=== PATIENT | male | born 1975 | race Caucasian/White ===

== ENCOUNTER 2022-12-22 22:59 | Inpatient (IN) | payer MEDICAID, SELFPAY ==
[2022-12-22 23:03] VITALS: BP 124/84; PULSE 85; RESP 20; TEMP 36.7; O2SAT 90
[2022-12-22 23:11] VITALS: BMI 26.9
[2022-12-22] MEDS: ibuprofen 600 mg Tablet PO (23:43)
[2022-12-22] MEDS: quetiapine XR (24HR) 300 mg Tablet PO (23:44)
[2022-12-23 06:00] VITALS: BP 105/70; PULSE 75; RESP 16; O2SAT 98
[2022-12-23] MEDS: CLONazepam 0.5 mg Tablet PO ×3 (08:45→20:38)
[2022-12-23] MEDS: levothyroxine 25 mcg Tablet PO (08:45)
[2022-12-23] MEDS: gabapentin 300 mg Capsule PO (08:45)
[2022-12-23] MEDS: buPROPion XL (24 HR) 150 mg Tablet PO (08:46)
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
[2022-12-23] MEDS: tizanidine 4 mg Tablet 2 MG PO ×2 (12:21→20:37)
[2022-12-23 13:59] VITALS: BP 100/62; PULSE 109; RESP 17; TEMP 36.8; O2SAT 96
[2022-12-23] MEDS: gabapentin 100 mg Capsule 400 MG PO ×2 (15:08→20:38)
[2022-12-23] MEDS: quetiapine XR (24HR) 300 mg Tablet PO (19:13)
[2022-12-23 21:18] VITALS: BP 110/77; PULSE 103; RESP 18; O2SAT 95
[2022-12-24 06:00] VITALS: BP 138/88; PULSE 82; RESP 17; TEMP 36.6; O2SAT 99
[2022-12-24] MEDS: gabapentin 100 mg Capsule 400 MG PO (08:41)
[2022-12-24] MEDS: CLONazepam 0.5 mg Tablet PO ×3 (08:42→20:39)
[2022-12-24] MEDS: buPROPion XL (24 HR) 150 mg Tablet PO (08:42)
[2022-12-24] MEDS: levothyroxine 25 mcg Tablet PO (08:42)
[2022-12-24] MEDS: tizanidine 4 mg Tablet 2 MG PO ×2 (08:42→15:33)
[2022-12-24 14:00] VITALS: BP 129/95; PULSE 106; RESP 17; TEMP 36.9; O2SAT 96
[2022-12-24] MEDS: gabapentin 300 mg Capsule 600 MG PO ×2 (14:37→20:39)
[2022-12-24] MEDS: ibuprofen 600 mg Tablet PO (15:32)
[2022-12-24] MEDS: quetiapine XR (24HR) 300 mg Tablet PO (18:43)
[2022-12-24] MEDS: OLANZapine 5 mg ODT PO (20:39)
[2022-12-24] MEDS: trazodone 50 mg Tablet PO (20:39)
[2022-12-24 21:35] VITALS: BP 126/84; PULSE 95; RESP 20; TEMP 36.6; O2SAT 98
--- NOTE | 2022-12-24 21:47 | P.NPUPN_ITS ---
Subjective NPU Subjective: 47 y.o. white male admitted with suicidal ideation, depressed mood with hx of psychosis and dysthymia in the context of methampetamine abuse. patient reports no psychotic symptoms at this time. He reports feeling better today. He was compliant and appeared in no acute distress on the milieu. He reports that he was feeling better on his medication with improvement in sleep with increase in seroquel. Patient reported plan for outpatient treatment. He reports good energy and improved motivation. Mental Status Exam MSE Comments: Patient is casually dressed white male who appeared slightly overweight and appeared in no acute distress. His gait was adequate. His hygiene was fair. There was no evidence of any abnormal involuntary motor movements tics or tremors appreciated. He denied any homicidal or suicidal ideation. He did not appear to be responding to internal stimuli. There was no clear evidence of delusional thinking. His mood was described as okay. His affect was brighter. His attention span was fair.. His thought process was linear and logical. His insight was improving. His judgment is fair. His impulse control appeared fair. His recent and remote memory appeared grossly intact. He was alert and oriented to person place and time. Vitals/I&O/Wt Last Vital Signs Temp 97.8 F 12/24/22 21:35 Pulse 95 12/24/22 21:35 Resp 20 H 12/24/22 21:35 BP 126/84 12/24/22 21:35 Pulse Ox 98 12/24/22 21:35 O2 Del Method Room Air 12/24/22 21:35 Weight last 48 hrs Weight 78.018 kg A&P Assessment and plan (1) Unspecified psychosis: (2) Dysthymia: (3) Anxiety disorder, unspecified: Plan 47-year-old white male positive for methamphetamine admitted after endorsing homicidal ideation towards his brother and making suicidal statements transferred from [facility] in [facility]. Patient would likely benefit from a short hospital stay with restarting of his current medications and evaluating for lethality. #1. Encourage individual group and milieu therapy. #2. Recommend sober living treatment at the highest level of care to which the patient is willing to commit. #3. Continue every 15 minute checks for safety. #4. Continue medications as prescribed with likely discharge tommorow. Involuntary Hold Information 96 Hour Hold: 96 Hour Involuntary Admission: Yes Attestations NPU Medical Necessity Statement*: Inpatient hospitalization is medically necessary and deemed to be the clinically appropriate intervention at this time.? We will monitor/initiate medications and make changes as indicated.? His likely length of stay is 1-2 days. Coding Level of Care Code Acute Code for Chg Fwd Diagnoses Unspecified psychosis F29 Dysthymia F34.1 Anxiety disorder, unspecified F41.9
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
[2022-12-25 06:00] VITALS: RESP 17
[2022-12-25] MEDS: levothyroxine 25 mcg Tablet PO (08:16)
[2022-12-25] MEDS: buPROPion XL (24 HR) 150 mg Tablet PO (08:16)
[2022-12-25] MEDS: CLONazepam 0.5 mg Tablet PO ×3 (08:16→20:58)
[2022-12-25] MEDS: gabapentin 300 mg Capsule 600 MG PO ×3 (08:16→20:58)
[2022-12-25] MEDS: ibuprofen 600 mg Tablet PO ×2 (10:21→15:30)
[2022-12-25] MEDS: tizanidine 4 mg Tablet 2 MG PO ×2 (10:23→21:00)
--- NOTE | 2022-12-25 12:10 | W.PM.NPUPNS ---
Subjective NPU Subjective: Patient presented today reporting that he still struggling with some challenges that he has. He reports that he is trying to get connected with treatment with the social work team for that outcome. He was very concerned about the ability to get his medications. He Reports a Significant Conflict with His Significant Other he does not feel he will be able to get his medications. We discussed the possibility that we might be able to get some medications in the meds to beds program. Because of the conflict with his girlfriend he is not sure that he has a place to go and is working with the social work team on a plan for discharge. Mental Status Exam MSE Comments: This is an overweight white male in hospital scrubs with adequate grooming and eye contact. No abnormal movements except for mild psychomotor retardation. Cooperative with exam in no acute distress. Speech was slightly decreased rate and volume. Mood described as better, affect congruent. Thought process organized. Thought content: Patient denied suicidal or homicidal ideation, there were no delusions reported noted, he denied any auditory or visual hallucinations. Attention and concentration were intact and memory appeared reliable but none were formally tested. He is alert and oriented x 3. Insight and judgment are limited but improving and impulse control is limited but improving. Vitals/I&O/Wt Last Vital Signs Temp 97.8 F 12/24/22 21:35 Pulse 95 12/24/22 21:35 Resp 17 12/25/22 06:00 BP 126/84 12/24/22 21:35 Pulse Ox 98 12/24/22 21:35 O2 Del Method Room Air 12/24/22 21:35 A&P Assessment and plan (1) Unspecified psychosis: (2) Dysthymia: (3) Anxiety disorder, unspecified: Plan 47-year-old white male positive for methamphetamine admitted after endorsing homicidal ideation towards his brother and making suicidal statements transferred from [facility] in [facility]. Patient would likely benefit from a short hospital stay with restarting of his current medications and evaluating for lethality. #1. Encourage individual group and milieu therapy. #2. Recommend sober living treatment at the highest level of care to which the patient is willing to commit. #3. Continue every 15 minute checks for safety. #4. Continue medications as prescribed with plan for discharge tommorow. Involuntary Hold Information 96 Hour Hold: 96 Hour Involuntary Admission: Yes Attestations NPU Medical Necessity Statement*: Inpatient hospitalization is medically necessary and deemed to be the clinically appropriate intervention at this time.? We will monitor/initiate medications and make changes as indicated.? His likely length of stay is 1-2 days. Coding Level of Care Code Acute Code for Chg Fwd Diagnoses Unspecified psychosis F29 Dysthymia F34.1 Anxiety disorder, unspecified F41.9
[2022-12-25 14:00] VITALS: BP 114/74; PULSE 89; RESP 17; TEMP 36.3; O2SAT 94
[2022-12-25] MEDS: quetiapine XR (24HR) 300 mg Tablet PO (20:58)
[2022-12-25 21:30] VITALS: BP 153/82; PULSE 95; RESP 17; TEMP 37; O2SAT 93
[2022-12-25] MEDS: trazodone 50 mg Tablet PO (22:26)
[2022-12-25] MEDS: OLANZapine 5 mg ODT PO (22:26)
[2022-12-26 06:00] VITALS: BP 115/78; PULSE 81; RESP 15; TEMP 36.8; O2SAT 95
--- NOTE | 2022-12-26 09:13 | PC.NURSE ---
IN DAY ROOM CONVERSING WITH PEERS, APPEARS TO BE IN GOOD SPIRITS DUE TO DISCHARGING TODAY TO A SOBER LIVING HOUSE. PT DENIES SI/HI AND AVH AT THIS TIME. DOES REPORT PAIN 5/10 IN SHOULDERS. MED RN GAVE TYLENOL ORDERED. NO DISTRESS NOTED.
[2022-12-26] MEDS: CLONazepam 0.5 mg Tablet PO ×2 (09:17→14:19)
[2022-12-26] MEDS: buPROPion XL (24 HR) 150 mg Tablet PO (09:17)
[2022-12-26] MEDS: levothyroxine 25 mcg Tablet PO (09:17)
[2022-12-26] MEDS: gabapentin 300 mg Capsule 600 MG PO ×2 (09:17→14:19)
[2022-12-26] MEDS: ibuprofen 600 mg Tablet PO (09:17)
[2022-12-26] MEDS: tizanidine 4 mg Tablet 2 MG PO (11:37)
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
[2022-12-26 13:21] VITALS: BP 115/78; PULSE 81; RESP 15; TEMP 36.8; O2SAT 95
--- NOTE | 2022-12-26 14:21 | PC.NURSE ---
SPOKE TO DR. AMAYA REGARDING PTS CLONAZEPAM PRESCRIPTION AND PT NEEDED A PRESCRIPTION FOR HIS ANXIETY MEDS. PT REQUESTS MEDICATIONS BE CALLED INTO [facility] IN [facility]. THIS RN CALLED IN CLONAZEPAM 0.5 MG PO TID SCHEDULED DISPENSE 60 TABS TO [facility]. IF WAS CONFIRMED PT HAS PICKED UP MEDS THERE BEFORE. PT WAS GIVEN ALL DISCHARGE EDUCATION, ALL QUESTIONS WERE ANSWERED AND SUPPORT WAS VOICED. LEFT WITH ALL BELONGINGS AND OTHER PRESCRIBED MEDS.
== END 2022-12-26 14:33 | disposition home or self-care (01) | DRG 897 ==
PROVIDERS: Admitting Provider Psychiatry & Neurology Psychiatry; Visit Provider Psychiatry & Neurology Psychiatry
DX: F15.159 Other stimulant abuse with stimulant-induced psychotic disorder, unspecified (principal); R45.851 Suicidal ideations; F34.1 Dysthymic disorder; R45.850 Homicidal ideations; F41.0 Panic disorder [episodic paroxysmal anxiety]; F20.9 Schizophrenia, unspecified; F32.9 Major depressive disorder, single episode, unspecified
CPT/HCPCS: 97150; 97165; 99238